=== PATIENT | male | born 1990 | race Two or more races ===

== ENCOUNTER 2023-01-12 20:38 | Emergency (ER) | payer OTHER ==
[~2023-01-12] VITALS: Ht 162.6 cm; Wt 75.0 kg
[2023-01-12 20:57] VITALS: BP 114/79; PULSE 91; RESP 19; TEMP 98.7; O2SAT 96
[2023-01-12] MEDS ORDERED: NAPR-681 MT (23:09)
[2023-01-12] MEDS ORDERED: CYCL10TA21 MT (23:09)
== END 2023-01-12 23:50 | disposition home or self-care (01) ==
LOC: ER 20:38
DX: M25.512 Pain in left shoulder (principal); M79.10 Myalgia, unspecified site; V49.49XA Driver injured in collision with other motor vehicles in traffic accident, initial encounter; Y93.89 Activity, other specified; Y92.89 Other specified places as the place of occurrence of the external cause; Y99.8 Other external cause status
CPT/HCPCS: 71045; 73030; 99284